=== PATIENT | female | born 1965 | race Hispanic/Latino ===

== ENCOUNTER 2017-11-20 17:09 | Emergency (ER) | payer OTHER ==
[2017-11-20 17:16] VITALS: BP 131/74; PULSE 72; TEMP 98; O2SAT 99
--- NOTE | 2017-11-20 17:32 | ED PDOC ---
Lower Extremity Pain/Injury Time Seen by Provider: 11/20/17 17:17 Chief Complaint (Nursing): Lower Extremity Problem/Injury Chief Complaint (Provider): Left Ankle Pain History Per: Patient Onset/Duration Of Symptoms: Days (x1) Current Symptoms Are (Timing): Still Present Additional Complaint(s): 52 year old female presents to the emergency department complaining of left ankle pain. Patient states that yesterday she rolled her ankle while walking. Patient able to walk and bear weight but with pain. No numbness or tingling to affected area. No associated left foot pain. PMD: Luz Aguirre [facility] Past Medical History Reviewed: Historical Data, Nursing Documentation, Vital Signs Vital Signs: Last Vital Signs Temp 98.0 F 11/20/17 17:14 Pulse 72 11/20/17 17:14 Resp 156 H 11/20/17 17:14 BP 131/74 11/20/17 17:14 Pulse Ox 99 11/20/17 17:14 - Medical History PMH: No Chronic Diseases - Surgical History Surgical History: No Surg Hx - Family History Family History: States: No Known Family Hx - Living Arrangements Living Arrangements: With Family - Social History Current smoker - smoking cessation education provided: No Ex-Smoker (has not smoked in the last 12 months): No Alcohol: Occasional Drugs: Denies - Allergies Allergies/Adverse Reactions: Allergies Allergy/AdvReac Type Severity Reaction Status Date / Time Penicillins Allergy RASH Verified 11/20/17 17:26 Review of Systems ROS Statement: Except As Marked, All Systems Reviewed And Found Negative Musculoskeletal: Positive for: Other (left ankle pain). Negative for: Foot Pain Physical Exam - Reviewed Nursing Documentation Reviewed: Yes Vital Signs Reviewed: Yes - Physical Exam Appears: Positive for: Well, Non-toxic, No Acute Distress Skin: Positive for: Normal Color. Negative for: Rash Eye Exam: Positive for: Normal appearance Respiratory: Negative for: Respiratory Distress Extremity: Positive for: Normal ROM, Tenderness (tenderness to left lateral malleolus), Swelling (swelling to left lateral mallelolus), Other (nontender left foot). Negative for: Calf Tenderness, Deformity Neurologic/Psych: Positive for: Alert, Oriented - ECG O2 Sat by Pulse Oximetry: 99 (RA) Pulse Ox Interpretation: Normal - Other Rad left ankle x-ray X-Ray: Interpreted by Me, Viewed By Me X-Ray Interpretation: no fx, no dis Medical Decision Making Medical Decision Makin Initial Impression 52 year old female presenting with left ankle pain Initial plan: * X-ray left ankle * Patient declined pain medications. Crutches declined. Aircast applied. RICE instructions given, podiatry referral provided. Documented by Brii Steve acting as a scribe for Tanvi Lee PA-C. All medical record entries made by the Scribe were at my direction and personally dictated by me. I have reviewed the chart and agree that the record accurately reflects my personal performance of the history, physical exam, medical decision making, and the department course for this patient. I have also personally directed, reviewed, and agree with the discharge instructions and disposition. Procedures - Splinting Location: left ankle Pre-Made Type: aircast Pre-Proc Neuro Vasc Exam: normal Post-Proc Neuro Vasc Exam: normal Disposition - Clinical Impression Clinical Impression: Left ankle sprain - Disposition Referrals: Power Mishra, MARYAM [Doctor Podiatric Medicine] - Disposition: Routine/Home Disposition Time: 18:04 Condition: STABLE Additional Instructions: Ice, rest and elevate affected area. 3 advil every 6 hrs for pain as needed. Follow up with sales office assistant for any persistent symptoms. Instructions: Ankle Sprain (DC) Forms: V I O (Sudanese)
[2017-11-20 17:56] VITALS: RESP 15
--- NOTE | 2017-11-20 18:09 | RAD ---
PROCEDURE: Left Ankle Radiographs. HISTORY: trauma COMPARISON: None FINDINGS: BONES: Questionable lateral malleolar tip avulsion fracture. JOINTS: Ankle mortise maintained. Talar dome intact SOFT TISSUES: Lateral malleolar soft tissue swelling. OTHER FINDINGS: Ankle joint effusion. IMPRESSION: Lateral malleolar soft tissue swelling and small ankle joint effusion. Questionable lateral malleolar tip avulsion fracture. ER notification submitted electronically.
== END 2017-11-20 18:12 | disposition home or self-care (01) ==
LOC: H.ER 17:09
DX: S93.402A Sprain of unspecified ligament of left ankle, initial encounter (principal); Z87.891 Personal history of nicotine dependence; Z88.0 Allergy status to penicillin; X50.1XXA Overexertion from prolonged static or awkward postures, initial encounter